=== PATIENT | male | born 1940 | race Caucasian/White ===

== ENCOUNTER 2023-11-28 16:03 | Observation (INO) ==
--- NOTE | 2023-11-28 16:13 | ED Triage Note ---
Date of Service November 28, 2023 Provider in Triage Author: Keila Aguila History of Present Illness This patient was briefly evaluated while in triage. An abbreviated physical exam was performed. This patient is a 83-year-old Male who presents to the ED for evaluation of hypotension. He states that at 4:30 am he woke up and had a funny feeling and trouble focusing. He then went to the bathroom and had a BM and went back to lay down. As soon as he laid down he felt like he had to go again and had a lot of diarrhea when he got up to go to the bathroom. He had a large amount of dark red blood mixed in with the diarrhea. He was then hypotensive throughout the day. Continued with rectal bleeding throughout the day. He is on chemo for subcutaneous T-cell lymphoma being treated in [place]. He was supposed to start chemo in [place] today, but too sick. He is on Plavix and aspirin. Has some discomfort in his abdomen. No nausea or vomiting. Has SOB with exertion. No chest pain. Allergies to Codeine and Iodine. Needs to be premedicated for IV contrast dye, but does well with premedication. Physical Exam GENERAL: Non-toxic and in no acute distress. HEENT: Pupils equal. No obvious scleral icterus. HEART: Regular rate and rhythm. LUNGS: Clear to auscultation. Diffuse wheezing. No accessory muscle use. ABDOMEN: Mild distension, diffusely tender to palpation. NEURO: Alert and oriented. No obvious neurological deficits on quick neuro exam. MUSCULOSKELETAL: No gross musculoskeletal defects. Initial orders for labs and / or imaging were placed and patient was placed in the waiting area until a bed is available. Please see further documentation for the full ED course. MDM / Impression Impression Impression: Weakness, Elevated lactic acid level, GI bleed, Elevated troponin Impression: GI bleed Qualifiers: GI bleed type/associated pathology: unspecified gastrointestinal hemorrhage type Qualified Code(s): K92.2 - Gastrointestinal hemorrhage, unspecified
[2023-11-28] MEDS: SODIUM CHLORIDE 0.9% 500 ML IV STA (16:49)
[2023-11-28 17:13] LABS: iSTAT Creatinine 1.1 mg/dl (0.6-1.3); iSTAT Hemoglobin 8.8 g/dl (14.0-18.0); iSTAT Ionized Calcium 1.08 mmol/l (1.12-1.32); iSTAT Potassium 4.1 mmol/L (3.3-5.0)
[2023-11-28 17:23] LABS: INR 0.9 (0.9-1.1); Partial Thromboplastin Ratio 0.7; Partial Thromboplastin Time 21 Seconds (21-31); Prothrombin Time 10.3 Seconds (9.0-12.0)
[2023-11-28 17:31] LABS: Basophils # (auto) 0.06 K/uL (0.00-0.20); Basophils % (auto) 0.5 %; Eosinophils # (auto) 0.02 K/uL (0.00-0.50); Eosinophils % (auto) 0.2 %; Hematocrit (blood only) 27.1 % (42.0-52.0); Hemoglobin 9.1 g/dl (14.0-18.0); Immature Granulocytes # (auto) 0.27 K/uL (0.01-0.20); Immature Granulocytes % (auto) 2.2 %; Lymphocytes # (auto) 1.43 K/uL (1.20-3.40); Lymphocytes % (auto) 11.5 %; Mean Corpuscular Hemoglobin 32.4 pg (25.0-34.0); Mean Corpuscular Hgb Conc 33.6 g/dL (32.0-36.0); Mean Corpuscular Volume 96.4 fL (80.0-100.0); Mean Platelet Volume 9.5 fL (9.4-12.4); Monocytes # (auto) 0.93 K/uL (0.11-0.59); Monocytes % (auto) 7.5 %; Neutrophils # (auto) 9.77 K/uL (1.40-6.50); Neutrophils % (auto) 78.1 %; Platelet Count 273 K/uL (130-400); RDW Coefficient of Variation 15.3 % (11.5-14.5); RDW Standard Deviation 53.1 fL (36.4-46.3); Red Blood Count 2.81 M/uL (4.70-6.10); White Blood Count 12.48 K/ul (4.8-10.8)
[2023-11-28] MEDS: diphenhydrAMINE 50 MG/ML VIAL IV ONE (17:48)
[2023-11-28] MEDS: SODIUM CHLORIDE 0.9% 1,000 ML IV ONE ×2 (17:49→19:17)
[2023-11-28] MEDS: ONDANSETRON INJ 2 MG/ML 2 ML VIAL IV STA (17:49)
[2023-11-28] MEDS: ALBUT/IPRATROP 3MG/0.5MG NEB 3 ML VIAL NEB STA (17:52)
--- NOTE | 2023-11-28 17:53 | XRay Report ---
XR chest 1V not portable HISTORY: 83 years-old Male GI bleed acute GI bleed with shortness of breath COMPARISON: None TECHNIQUE: PA view of the chest FINDINGS: Cardiac silhouette is enlarged. Median sternotomy with sternal surgical clips. Several sternotomy wir es are fractured. No pneumothorax, pleural effusion, airspace consolidation or pulmonary edema. The b ones appear grossly intact. IMPRESSION: Cardiomegaly without acute process. ACT 112: Negative or not required by law. The above report was generated using voice recognition software. It may contain grammatical, syntax o r spelling errors. Electronically signed by: Presley Hidalgo M.D. 11/28/2023 5:51 PM
[2023-11-28 18:05] LABS: Alanine Aminotransferase 19 U/L (7-52); Albumin Level 3.2 gm/dl (3.4-5.0); Alkaline Phosphatase 58 U/L (34-104); Anion Gap 8 (3-11); Aspartate Aminotransferase 23 U/L (13-39); BUN Creatinine Ratio 39.4 (10-20); Bilirubin,Total 0.3 mg/dl (0.2-1.0); Blood Urea Nitrogen 41 mg/dl (6-23); Calcium 8.4 mg/dl (8.6-10.3); Carbon Dioxide 27 mmol/L (21-32); Chloride 97 mmol/L (98-107); Est GFR (African American) 76.6 ml/min; Est GFR (Non-African American) 66.1 ml/min; Globulin 3.1 gm/dl (2.5-4.0); Glucose 111 mg/dl (70-99(Fasting)); Lipase 37 U/L (11-82); Magnesium 1.6 mg/dl (1.7-2.4); Potassium 4.2 mmol/L (3.5-5.1); Sodium 132 mmol/L (136-145); Total Protein 6.3 gm/dl (6.0-8.3)
[2023-11-28 18:09] LABS: Troponin I High Sensitivity 43.1 pg/ml (0-20)
[2023-11-28 18:18] LABS: Thyroid Stimulating Hormone 2.301 uIu/ml (0.300-4.500)
[2023-11-28] MEDS: OPTIRAY 320 100ml IV ONE (18:21)
--- NOTE | 2023-11-28 18:31 | Emergency Department Note ---
Impression & Plan Weakness, Elevated lactic acid level, GI bleed, Elevated troponin ED Provider Note NAME: JOHNNY PAZ AGE: 83 SEX: M : 1940 ARRIVES VIA: Walk-In INFORMANT: Patient ED PROVIDER(S): Mani Up DO CHIEF COMPLAINT: weakness, abdominal pain HPI: Patient is an 83-year-old male who presents to the ER patient with a history of cancer currently receiving chemotherapy with his last dose 2 weeks ago. He has been having diarrhea today, abdominal pain and feeling very weak/rundown. Denies any headache or change in vision. He admits to back pain which is chronic but worse than usual. Denies any dysuria, urgency, or frequency. No other exacerbating or remitting factors. Additional history obtained from daughter who is present at bedside who notes that the patient's blood pressure was 60s when he was up moving around. ADDITIONAL HISTORY OBTAINED: Per HPI Chronic Medical/Social Conditions Affecting Care: Per HPI PAST MEDICAL HISTORY:See Below PAST SURGICAL HISTORY:See Below FAMILY HISTORY:See Below SOCIAL HISTORY:See Below HOME MEDICATIONS:See Below ALLERGIES:See Below VITALS:See Below PHYSICAL EXAMINATION: GENERAL: Sitting up in bed, alert, chronically ill-appearing, disheveled EYE EXAM: normal conjunctiva. OROPHARYNX: mucous membranes are moist NECK: supple, no nuchal rigidity, no adenopathy, non-tender LUNGS: Clear to auscultation. Normal chest wall mechanics HEART: no murmurs, S1 normal and S2 normal ABDOMEN: abdomen soft, non-tender, normo-active bowel sounds, no masses, no rebound or guarding. BACK: Back is symmetrical on inspection and there is no deformity, no midline tenderness, no CVA tenderness. UPPER EXTREMITIES: upper extremities are grossly normal. LOWER EXTREMITIES: No pitting edema. NEURO EXAM: Normal sensorium, cranial nerves II-XII grossly intact, normal speech, no gross weakness of arms, no gross weakness of legs. MEDICAL DECISION MAKING: Patient is an 83-year-old male with a history of T-cell lymphoma who presents the ER for above-stated complaint. Last chemo was 2 weeks ago. IV was established blood was obtained. Labs show a leukocytosis of nearly 13 with anemia of 9. INR unremarkable. BMP with mild hyponatremia at 132. LFTs bilirubin was unremarkable. Troponin was elevated. Lipase was normal. Pro-Tobin was normal. Patient was given IV fluids. Monitor closely. Was given IV cefepime and blood cultures were obtained. CT abdomen pelvis showed no acute pathology. Patient was given morphine as well. Updated bedside and discussed the hospitalist for further evaluation management treatment. EKG was abnormal but no old to compare to. Currently having no chest pain. Consults/Care Managements Discussions: Per [facility] Triage Nursing notes reviewed. Limited review of prior medical records performed Vital Signs: reviewed and remarkable for HTN Differential diagnosis: Infection, dehydration, metabolic abnormality, hypo/hyperglycemia, electrolyte disturbance, anemia, hypoxia, cardiac sources, intracerebral event, toxicologic, neurologic, as well as other pathologies. ER treatment provided: See below Diagnostics interpreted by me include EKG and cardiac monitoring as listed below: -Cardiac Monitoring: An order was placed for continuous cardiac monitoring. The monitor shows a rate of 90 with sinus rhythm. -ECG: Sinus rhythm rate 80 Normal axis T wave inversions in the inferior leads as well as the lateral leads with ST depressions QTc 408 No old to compare to -Laboratory studies:Interpreted by me as stated above in MDM and shown below. Imaging studies: Xrays: As interpreted by me: Portable AP upright 1 view the chest shows no focal infiltrate CTs show: CT abdomen pelvis was unremarkable Procedures:none Critical Care: None Past Med/Surg History Social History Smoking Status: Current every day smoker Tobacco Type: Cigarettes Feels Safe at Home: Yes Allergies Allergies Allergy/AdvReac Type Severity Reaction Status Date / Time Iodinated Contrast Media Allergy Severe "SWELLED Verified 11/28/23 19:45 UP ALL OVER" iodine Allergy Severe "SWELLED Verified 11/28/23 19:45 UP ALL OVER" codeine AdvReac Intermediate CAUSED Verified 11/28/23 19:45 PROSTATE ISSUES Home Meds Home Medications Medication Instructions Recorded Confirmed clopidogrel 75 mg tablet 75 mg PO DAILY 11/28/23 11/28/23 folic acid 1 mg tablet 1 mg PO DAILY 11/28/23 11/28/23 lisinopril 20 1 tab PO DAILY 11/28/23 11/28/23 mg-hydrochlorothiazide 12.5 mg tablet lorazepam 0.5 mg tablet 0.5 mg PO BID PRN Anxiety 11/28/23 11/28/23 oxycodone-acetaminophen 5 mg-325 1 tab PO Q4H PRN Pain 11/28/23 11/28/23 mg tablet prednisone 20 mg tablet 20 mg PO DAILY 11/28/23 11/28/23 rosuvastatin 5 mg tablet 5 mg PO DAILY 11/28/23 11/28/23 zolpidem 10 mg tablet 10 mg PO HS PRN Sleep 11/28/23 11/28/23 Results & Data (ED) Vital Signs Vital Signs - 24 hr 11/28/23 16:12 11/28/23 17:57 11/28/23 18:17 Temperature 36.1 C L Temperature Source Temporal Artery Scan Pulse Rate 98 H 88 Pulse Rate [Apical] Respiratory Rate 18 Respiratory Effort / Characteristics Non-Labored Spontaneous Respiratory Depth Normal Respiratory Pattern Regular Blood Pressure 111/69 Blood Pressure [Right Arm] Blood Pressure Mean 83 Blood Pressure Mean [Right Arm] Pulse Oximetry 100 100 Oxygen Delivery Method Room Air Room Air Sepsis Recent Fever Within 48 Hours No Sepsis New/Unexplained Change in Mental Status N/A Sepsis Action Taken by Nursing No Action Required 11/28/23 18:17 11/28/23 18:17 11/28/23 21:37 Temperature Temperature Source Pulse Rate 114 H Pulse Rate [Apical] 88 Respiratory Rate 24 Respiratory Effort / Characteristics Respiratory Depth Respiratory Pattern Blood Pressure Blood Pressure [Right Arm] 153/74 H Blood Pressure Mean Blood Pressure Mean [Right Arm] 100 Pulse Oximetry 100 100 Oxygen Delivery Method Room Air Room Air Sepsis Recent Fever Within 48 Hours Sepsis New/Unexplained Change in Mental Status Sepsis Action Taken by Nursing 11/28/23 21:40 Temperature Temperature Source Pulse Rate Pulse Rate [Apical] 111 H Respiratory Rate 24 Respiratory Effort / Characteristics Respiratory Depth Respiratory Pattern Blood Pressure Blood Pressure [Right Arm] 125/89 Blood Pressure Mean Blood Pressure Mean [Right Arm] 101 Pulse Oximetry 97 Oxygen Delivery Method Room Air Sepsis Recent Fever Within 48 Hours Sepsis New/Unexplained Change in Mental Status Sepsis Action Taken by Nursing Laboratory Data 11/28/23 21:33 11/28/23 16:53 Lab Results 11/28/23 11/28/23 11/28/23 Range/Units 16:53 17:00 18:56 WBC 12.48 H (4.8-10.8) K/ul RBC 2.81 L (4.70-6.10) M/uL Hgb 9.1 L (14.0-18.0) g/dl POC Hgb 8.8 L (14.0-18.0) g/dl Hct 27.1 L (42.0-52.0) % POC Hct 26 L (42-52) % MCV 96.4 (80.0-100.0) fL MCH 32.4 (25.0-34.0) pg MCHC 33.6 (32.0-36.0) g/dL RDW Std Deviation 53.1 H (36.4-46.3) fL RDW Coeff of Luzmaria 15.3 H (11.5-14.5) % Plt Count 273 (130-400) K/uL MPV 9.5 (9.4-12.4) fL Immature Gran % (Auto) 2.2 % Neut % (Auto) 78.1 % Lymph % (Auto) 11.5 % [place] % (Auto) 7.5 % Eos % (Auto) 0.2 % Baso % (Auto) 0.5 % Neut # (Auto) 9.77 H (1.40-6.50) K/uL Lymph # (Auto) 1.43 (1.20-3.40) K/uL [place] # (Auto) 0.93 H (0.11-0.59) K/uL Eos # (Auto) 0.02 (0.00-0.50) K/uL Baso # (Auto) 0.06 (0.00-0.20) K/uL Immature Gran # (Auto) 0.27 H (0.01-0.20) K/uL PT 10.3 (9.0-12.0) Seconds INR 0.9 (0.9-1.1) APTT 21 (21-31) Seconds PTT Ratio 0.7 POC Sodium 131 L (135-144) mmol/L Sodium 132 L (136-145) mmol/L POC Potassium 4.1 (3.3-5.0) mmol/L Potassium 4.2 (3.5-5.1) mmol/L POC Chloride 96 L (101-112) mmol/L Chloride 97 L (98-107) mmol/L Carbon Dioxide 27 (21-32) mmol/L POC Total CO2 27 (24-31) mmol/L Anion Gap 8 (3-11) POC Anion Gap 13.0 L (16-25) mmol/L POC BUN 37 H (7-18) mg/dl BUN 41 H (6-23) mg/dl Creatinine 1.04 (0.6-1.4) mg/dl POC Creatinine 1.1 (0.6-1.3) mg/dl Est Cr Clr Drug Dosing Not Reportable Est GFR ( Amer) 76.6 ml/min Est GFR (Non-Af Amer) 66.1 ml/min BUN/Creatinine Ratio 39.4 H (10-20) Glucose 111 H (70-99(Fasting)) mg/dl POC Glucose (other) 101 H (70-99) mg/dl Lactate 2.7 H* 1.9 (0.4-2.0) mmol/L Calcium 8.4 L (8.6-10.3) mg/dl POC Ioniz Calcium Payal 1.08 L (1.12-1.32) mmol/l Magnesium 1.6 L (1.7-2.4) mg/dl Total Bilirubin 0.3 (0.2-1.0) mg/dl AST 23 (13-39) U/L ALT 19 (7-52) U/L Alkaline Phosphatase 58 (34-104) U/L Troponin I High Sens 43.1 H 38.3 H (0-20) pg/ml Total Protein 6.3 (6.0-8.3) gm/dl Albumin 3.2 L (3.4-5.0) gm/dl Globulin 3.1 (2.5-4.0) gm/dl Albumin/Globulin Ratio 1.0 (0.9-2) Lipase 37 (11-82) U/L Procalcitonin 0.26 (0-0.5) ng/ml TSH 2.301 (0.300-4.500) uIu/ml Blood Type A Positive Antibody Screen NEGATIVE 11/28/23 Range/Units 21:33 WBC 13.79 H (4.8-10.8) K/ul RBC 2.73 L (4.70-6.10) M/uL Hgb 8.8 L (14.0-18.0) g/dl POC Hgb (14.0-18.0) g/dl Hct 26.8 L (42.0-52.0) % POC Hct (42-52) % MCV 98.2 (80.0-100.0) fL MCH 32.2 (25.0-34.0) pg MCHC 32.8 (32.0-36.0) g/dL RDW Std Deviation 55.2 H (36.4-46.3) fL RDW Coeff of Luzmaria 15.3 H (11.5-14.5) % Plt Count 253 (130-400) K/uL MPV 9.6 (9.4-12.4) fL Immature Gran % (Auto) % Neut % (Auto) % Lymph % (Auto) % [place] % (Auto) % Eos % (Auto) % Baso % (Auto) % Neut # (Auto) (1.40-6.50) K/uL Lymph # (Auto) (1.20-3.40) K/uL [place] # (Auto) (0.11-0.59) K/uL Eos # (Auto) (0.00-0.50) K/uL Baso # (Auto) (0.00-0.20) K/uL Immature Gran # (Auto) (0.01-0.20) K/uL PT (9.0-12.0) Seconds INR (0.9-1.1) APTT (21-31) Seconds PTT Ratio POC Sodium (135-144) mmol/L Sodium (136-145) mmol/L POC Potassium (3.3-5.0) mmol/L Potassium (3.5-5.1) mmol/L POC Chloride (101-112) mmol/L Chloride (98-107) mmol/L Carbon Dioxide (21-32) mmol/L POC Total CO2 (24-31) mmol/L Anion Gap (3-11) POC Anion Gap (16-25) mmol/L POC BUN (7-18) mg/dl BUN (6-23) mg/dl Creatinine (0.6-1.4) mg/dl POC Creatinine (0.6-1.3) mg/dl Est Cr Clr Drug Dosing Est GFR ( Amer) ml/min Est GFR (Non-Af Amer) ml/min BUN/Creatinine Ratio (10-20) Glucose (70-99(Fasting)) mg/dl POC Glucose (other) (70-99) mg/dl Lactate (0.4-2.0) mmol/L Calcium (8.6-10.3) mg/dl POC Ioniz Calcium Payal (1.12-1.32) mmol/l Magnesium (1.7-2.4) mg/dl Total Bilirubin (0.2-1.0) mg/dl AST (13-39) U/L ALT (7-52) U/L Alkaline Phosphatase (34-104) U/L Troponin I High Sens (0-20) pg/ml Total Protein (6.0-8.3) gm/dl Albumin (3.4-5.0) gm/dl Globulin (2.5-4.0) gm/dl Albumin/Globulin Ratio (0.9-2) Lipase (11-82) U/L Procalcitonin (0-0.5) ng/ml TSH (0.300-4.500) uIu/ml Blood Type Antibody Screen Administered Medications Discontinued Medications Albuterol (Albut/Ipratrop 3mg/0.5mg Neb 3 Ml Vial) 3 ml NEB NOW STA; Protocol Stop: 11/28/23 16:22 Last Admin: 11/28/23 17:52 Dose: 3 ml Documented By: IDRIS Diphenhydramine HCl (Diphenhydramine 50 Mg/Ml Vial) 50 mg IV ONE ONE Stop: 11/28/23 16:19 Last Admin: 11/28/23 17:48 Dose: 50 mg Documented By: IDRIS Sodium Chloride (Nss) 500 mls @ 999 mls/hr IV .Q31M STA Stop: 11/28/23 16:48 Last Infusion: 11/28/23 17:30 Dose: Infused Documented By: Admin: 11/28/23 16:49 Dose: 999 mls/hr Documented By: REGINA Sodium Chloride (Nss) 1,000 mls @ 999 mls/hr IV .Q1H1M ONE Stop: 11/28/23 18:20 Last Infusion: 11/28/23 19:17 Dose: Infused Documented By: JOSE RAUL Admin: 11/28/23 17:49 Dose: 999 mls/hr Documented By: IDRIS Sodium Chloride (Nss) 1,000 mls @ 999 mls/hr IV .Q1H1M ONE Stop: 11/28/23 19:21 Last Infusion: 11/28/23 20:49 Dose: Infused Documented By: Admin: 11/28/23 19:17 Dose: 999 mls/hr Documented By: JOSE RAUL Cefepime HCl (Maxipime) 2,000 mg in 20 mls @ 5 mls/min IV NOW STA; Protocol Stop: 11/28/23 18:24 Last Admin: 11/28/23 18:54 Dose: 5 mls/min Documented By: IDRIS Ioversol (Optiray 320 100ml) 91 ml IV ONCE ONE Stop: 11/28/23 18:20 Last Admin: 11/28/23 18:21 Dose: 91 ml Documented By: DAVID Methylprednisolone (Methylprednisolone 40 Mg/Ml Vial) 40 mg IV NOW ONE Stop: 11/28/23 16:19 Last Admin: 11/28/23 17:47 Dose: 40 mg Documented By: IDRIS Morphine Sulfate (Morphine Sulfate 4 Mg/Ml 1 Ml Carp\\Vial) 4 mg IV NOW STA Stop: 11/28/23 18:58 Last Admin: 11/28/23 19:02 Dose: 4 mg Documented By: IDRIS Ondansetron HCl (Ondansetron Inj 2 Mg/Ml 2 Ml Vial) 4 mg IV NOW STA Stop: 11/28/23 16:19 Last Admin: 11/28/23 17:49 Dose: 4 mg Documented By: IDRIS Imaging Data Radiologist's Impression: Abdomen/Pelvis CT 11/28/23 16:19 Exam(s): CT ABDOMEN + PELVIS With Contrast IV Amt: 91 ml optiray 320 EXAM: CT Abdomen and Pelvis With Intravenous Contrast CLINICAL HISTORY: Reason for exam: Abdominal pain, rectal bleeding. TECHNIQUE: Axial computed tomography images of the abdomen and pelvis with intravenous contrast. CTDI is 26.93 mGy and DLP is 1213.6 mGy-cm. Automated exposure control was utilized for the study. A dose lowering technique was utilized adhering to the principles of ALARA. CONTRAST: Patient received 91 ml optiray 320 of IV contrast COMPARISON: No relevant prior studies available. FINDINGS: ABDOMEN: Liver: Unremarkable. Gallbladder and bile ducts: Cholecystectomy. Pancreas: Unremarkable. Spleen: Unremarkable. Adrenals: Unremarkable. Kidneys and ureters: Multiple cysts in the kidneys. Stomach and bowel: Colonic diverticulosis without diverticulitis. PELVIS: Appendix: No findings to suggest acute appendicitis. Bladder: The bladder is distended and markedly trabeculated. Reproductive: Prostate is normal in size. ABDOMEN and PELVIS: Intraperitoneal space: Unremarkable. No free air. No significant fluid collection. Bones/joints: Severe degenerative changes within the spine. Left hip arthroplasty which is positioned posteriorly with cystic changes around the acetabular component as can be seen in the setting of particle disease. Soft tissues: Unremarkable. 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 Lymph nodes: Unremarkable. IMPRESSION: 1. The bladder is distended and markedly trabeculated. 2. Colonic diverticulosis without diverticulitis. 3. Moderate to severe aortobiiliac atherosclerotic disease. 4. Severe degenerative changes within the spine. 5. Left hip arthroplasty which is positioned posteriorly with cystic changes around the acetabular component as can be seen in the setting of particle disease. Electronically signed by: Steven Kaplan MD 11/28/23 19:39 PM Chest X-Ray 11/28/23 16:19 XR chest 1V not portable HISTORY: 83 years-old Male GI bleed acute GI bleed with shortness of breath COMPARISON: None TECHNIQUE: PA view of the chest FINDINGS: Cardiac silhouette is enlarged. Median sternotomy with sternal surgical clips. Several sternotomy wires are fractured. No pneumothorax, pleural effusion, airspace consolidation or pulmonary edema. The bones appear grossly intact. IMPRESSION: Cardiomegaly without acute process. ACT 112: Negative or not required by law. The above report was generated using voice recognition software. It may contain grammatical, syntax or spelling errors. Electronically signed by: Presley Hidalgo M.D. 11/28/2023 5:51 PM Discharge Plan Visit Data Chief Complaint: Hypotension Stated Complaint: GI BLEED/BLOODY STOOL, LOW BP ED Provider: Mani Up Discharge Problem: Weakness, Elevated lactic acid level, GI bleed, Elevated troponin Forms Stand Alone Forms: My [facility] [employer] Prescriptions Prescriptions: No Action lisinopril-hydrochlorothiazide 20-12.5 mg tablet 1 tab PO DAILY prednisone 20 mg tablet 20 mg PO DAILY clopidogrel 75 mg tablet 75 mg PO DAILY oxycodone-acetaminophen 5-325 mg tablet 1 tab PO Q4H PRN (Reason: Pain) lorazepam 0.5 mg tablet 0.5 mg PO BID PRN (Reason: Anxiety) folic acid 1 mg tablet 1 mg PO DAILY zolpidem 10 mg tablet 10 mg PO HS PRN (Reason: Sleep) rosuvastatin 5 mg tablet 5 mg PO DAILY Referrals Referrals: PCP,NO [Physician] - Discharge Problem: GI bleed Qualifiers: GI bleed type/associated pathology: unspecified gastrointestinal hemorrhage type Qualified Code(s): K92.2 - Gastrointestinal hemorrhage, unspecified
[2023-11-28] MEDS: CEFEPIME 2,000 MG/20 ML VIAL IV STA (18:54)
[2023-11-28] MEDS: MoRPHine SULFATE 4 MG/ML 1 ML CARP\\VIAL IV STA (19:02)
--- NOTE | 2023-11-28 19:40 | CT Scan Report ---
Exam(s): CT ABDOMEN + PELVIS With Contrast IV Amt: 91 ml optiray 320 EXAM: CT Abdomen and Pelvis With Intravenous Contrast CLINICAL HISTORY: Reason for exam: Abdominal pain, rectal bleeding. TECHNIQUE: Axial computed tomography images of the abdomen and pelvis with intravenous contrast. CTDI is 26.93 mGy and DLP is 1213.6 mGy-cm. Automated exposure control was utilized for the study. A dose lowering technique was utilized adhering to the principles of ALARA. CONTRAST: Patient received 91 ml optiray 320 of IV contrast COMPARISON: No relevant prior studies available. FINDINGS: ABDOMEN: Liver: Unremarkable. Gallbladder and bile ducts: Cholecystectomy. Pancreas: Unremarkable. Spleen: Unremarkable. Adrenals: Unremarkable. Kidneys and ureters: Multiple cysts in the kidneys. Stomach and bowel: Colonic diverticulosis without diverticulitis. PELVIS: Appendix: No findings to suggest acute appendicitis. Bladder: The bladder is distended and markedly trabeculated. Reproductive: Prostate is normal in size. ABDOMEN and PELVIS: Intraperitoneal space: Unremarkable. No free air. No significant fluid collection. Bones/joints: Severe degenerative changes within the spine. Left hip arthroplasty which is positioned posteriorly with cystic changes around the acetabular component as can be seen in the setting of particle disease. Soft tissues: Unremarkable. 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 Lymph nodes: Unremarkable. IMPRESSION: 1. The bladder is distended and markedly trabeculated. 2. Colonic diverticulosis without diverticulitis. 3. Moderate to severe aortobiiliac atherosclerotic disease. 4. Severe degenerative changes within the spine. 5. Left hip arthroplasty which is positioned posteriorly with cystic changes around the acetabular component as can be seen in the setting of particle disease. Electronically signed by: Steven Kaplan MD 11/28/23 19:39 PM
--- NOTE | 2023-11-28 21:04 | History & Physical Report ---
Date of Service November 28, 2023 Assessment & Plan (1) GI bleed: Plan: - CT A&P without source of acute bleeding - Hemoglobin from 12 to 9 over the past 3 days - Type and screen completed and blood consent was obtained, place 2 large bore IVs - q6H CBC and transfuse if hemoglobin less than 7 - 40mg Protonix IV BID - GI consulted; NPO pending consult (2) Hypotension: Plan: - reportedly hypotensive at home in the setting of acute GI bleed - blood pressures 130s/70s after 3L IVF - Continue LR @100ml/hr - if he becomes hypotensive again low threshold to give stress dose steroids - continue to trend H/H as per above (3) Elevated lactic acid level: Plan: - Does meet SIRs criteria with leukocytosis of 12 and tachycardia - Lactate initially elevated at 2.7, down to 1.9 with IVF; likely dehydrated - Procal= 0.26, CXR without signs of acute infection - Pt without signs of neutropenia, still considered immunocompromised as he is on chemotherapy - Received cefepime in the ED, no signs of acute infection at present; but low threshold to resume broad spectrum coverage with cefepime, given that he is immunocompromised - urine and blood cultures pending (4) Elevated troponin: Plan: - troponin 43-> 38; EKG with T wave inversions II, II, aVF, and V5/6. No prior EKGs for comparison. 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 - follows with [facility], request for records - continue prednisone; low threshold for stress dose steroids if further hypotension (9) History of coronary artery bypass graft: Plan: - hold Plavix given concern for acute GI bleed (10) Hypomagnesemia: Plan: - Mg= 1.6; repleted - continue to trend (11) Tobacco abuse: Plan: - 60 pack years - denies history of COPD, not on any inhalers at home - nicotine patch ordered History of Present Illness Primary Care Provider: Craig Hunt MD 83 year old male with a past medical history of CAD (CABG at 39), tobacco use (60 pack years), HTN, HLD, BPH, currently in treatment for subcutaneous T-cell lymphoma presenting with concern for GI bleed. Early this morning had blood BM, dark red blood mixed with diarrhea, second bloody BM around 1300. Systolic blood pressures in the 60s/70s at home. Started chemo therapy once weekly, 1 month ago and was scheduled for 4th treatment this afternoon, did not go. Follows with [facility] oncology. Denies history of GI bleeding, has never had colon cancer screening. Is on Plavix, states that he has been on since is CABG in his 30s. Some lightheadedness. Denies chest pain, dyspnea, abdominal pain, fever/chills. Some nausea earlier which has since resolved, denies vomiting. No further BM/bleeding since 1300 this afternoon. States that he had labs at the beginning of the week through oncology, and hemoglobin was 12 at that time. ED Work-Up Significant for: Blood pressures 130s/70s, Hbg= 9.1, Mild Leucocytosis= 12, Lactate 2.7-> 1.9, Trop 43-> 38, procal= 1.26. Received 40mg Solu-Medrol, DuoNeb, Cefepime, 3L NSS. Allergies Allergy/AdvReac Type Severity Reaction Status Date / Time Iodinated Contrast Media Allergy Severe "SWELLED Verified 11/28/23 19:45 UP ALL OVER" iodine Allergy Severe "SWELLED Verified 11/28/23 19:45 UP ALL OVER" shellfish derived Allergy Verified 11/29/23 12:26 codeine AdvReac Intermediate CAUSED Verified 11/28/23 19:45 PROSTATE ISSUES Home Medications Medication Instructions Recorded Confirmed Type clopidogrel 75 mg tablet 75 mg PO DAILY 11/28/23 11/28/23 History folic acid 1 mg tablet 1 mg PO DAILY 11/28/23 11/28/23 History lisinopril 20 1 tab PO DAILY 11/28/23 11/28/23 History mg-hydrochlorothiazide 12.5 mg tablet lorazepam 0.5 mg tablet 0.5 mg PO BID PRN Anxiety 11/28/23 11/28/23 History oxycodone-acetaminophen 5 mg-325 1 tab PO Q4H PRN Pain 11/28/23 11/28/23 History mg tablet prednisone 20 mg tablet 20 mg PO DAILY 11/28/23 11/28/23 History rosuvastatin 5 mg tablet 5 mg PO DAILY 11/28/23 11/28/23 History zolpidem 10 mg tablet 10 mg PO HS PRN Sleep 11/28/23 11/28/23 History Past Med/Surg History Social History Smoking Status: Current every day smoker Tobacco Type: Cigarettes Hx Alcohol Use: No Hx Substance Use: No Preferred Language: Wallisian Communication Ability: Effective 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 Beliefs That Will Affect Care: None Current Living Situation Comment: Friend Other Information That Helps Us Care for You: No Feels Safe at Home: Yes Safety Concerns: Feels Safe At This Time Assistive Devices: Cane Review of Systems Review of Systems: As per above Physical Exam Physical Exam: Constitutional: well-appearing, no acute distress HEENT: NCAT, no conjunctival injection CV: regular rhythm, no murmur appreciated, extremities well-perfused, no LE edema Resp: CTABL, no wheezes/rales/rhonchi appreciated, no increased work of breathing GI: soft, nondistended, nontender, BS normoactive MSK: no gross deformities appreciated Skin: warm, dry, no rash appreciated Neuro: alert, oriented, no focal neurologic deficit appreciated Results & Data Results & Data Vital Signs (Past 12 Hours) Vital Signs Temp Pulse Pulse Resp BP BP Pulse Ox 11/28/23 18:17 100 11/28/23 18:17 88 24 153/74 H 100 11/28/23 18:17 100 11/28/23 17:57 88 11/28/23 16:12 36.1 C L 98 H 18 111/69 100 O2 Del Method 11/28/23 18:17 Room Air 11/28/23 18:17 Room Air 11/28/23 18:17 Room Air 11/28/23 17:57 11/28/23 16:12 Room Air Supervising Physician Co-Signing Physician Notes Patient seen and examined, chart reviewed, case discussed with Dr. Zacarias and I agree with the assessment and plan as above Resident Activity Tracking Resident Involvement: Resident Care Provided Care Provided: Adult Hospital Medicine
[2023-11-28 21:52] LABS: Hematocrit (blood only) 26.8 % (42.0-52.0); Hemoglobin 8.8 g/dl (14.0-18.0); Mean Corpuscular Hemoglobin 32.2 pg (25.0-34.0); Mean Corpuscular Hgb Conc 32.8 g/dL (32.0-36.0); Mean Corpuscular Volume 98.2 fL (80.0-100.0); Mean Platelet Volume 9.6 fL (9.4-12.4); Platelet Count 253 K/uL (130-400); RDW Coefficient of Variation 15.3 % (11.5-14.5); RDW Standard Deviation 55.2 fL (36.4-46.3); Red Blood Count 2.73 M/uL (4.70-6.10); White Blood Count 13.79 K/ul (4.8-10.8)
[2023-11-28] MEDS: PANTOprazole 40 MG in SYRINGE 0 ML IV SCH (22:13)
[2023-11-28] MEDS: LACTATED RINGER'S 1,000 ML IV SCH (22:14)
[2023-11-28] MEDS: MAGNESIUM SULFATE / D5W 1 GM/100 ML BAG IV ONE (22:14)
[2023-11-28] MEDS: ZOLPIDEM TARTRATE 10 MG TAB PO PRN (23:56)
[2023-11-29 04:09] LABS: Hematocrit (blood only) 23.7 % (42.0-52.0); Hemoglobin 7.7 g/dl (14.0-18.0); Mean Corpuscular Hgb Conc 32.5 g/dL (32.0-36.0); Mean Corpuscular Volume 98.3 fL (80.0-100.0); Mean Platelet Volume 9.3 fL (9.4-12.4); Platelet Count 214 K/uL (130-400); RDW Coefficient of Variation 15.4 % (11.5-14.5); Red Blood Count 2.41 M/uL (4.70-6.10); White Blood Count 9.43 K/ul (4.8-10.8)
[2023-11-29 04:31] LABS: Albumin Globulin Ratio 1.2 (0.9-2); Albumin Level 2.9 gm/dl (3.4-5.0); Bilirubin,Total 0.3 mg/dl (0.2-1.0); Calcium 7.6 mg/dl (8.6-10.3); Creatinine Clr Calc Pharmacy 64.3 ml/min; Est GFR (African American) 91.6 ml/min; Est GFR (Non-African American) 79.1 ml/min; Globulin 2.5 gm/dl (2.5-4.0); Magnesium 1.7 mg/dl (1.7-2.4); Potassium 4.6 mmol/L (3.5-5.1); Total Protein 5.4 gm/dl (6.0-8.3)
[2023-11-29] MEDS ORDERED: oxyCODONE/ACETAMINOPHEN 5mg/325mg TAB PO PRN (08:17)
[2023-11-29] MEDS: oxyCODONE/ACETAMINOPHEN 5mg/325mg TAB PO ONE (08:23)
[2023-11-29] MEDS: predniSONE 20 MG TAB PO SCH (08:24)
[2023-11-29] MEDS: NICOTINE 14 MG/24 HR PATCH TD SCH (08:24)
[2023-11-29] MEDS: FOLIC ACID 1 MG TAB PO SCH (08:24)
[2023-11-29] MEDS: ROSUVASTATIN CALCIUM 5 MG TAB PO SCH (08:24)
[2023-11-29 09:04] LABS: Hematocrit (blood only) 22.8 % (42.0-52.0); Hemoglobin 7.4 g/dl (14.0-18.0); Mean Corpuscular Hgb Conc 32.5 g/dL (32.0-36.0); Mean Corpuscular Volume 98.7 fL (80.0-100.0); Mean Platelet Volume 9.6 fL (9.4-12.4); Platelet Count 212 K/uL (130-400); RDW Coefficient of Variation 15.7 % (11.5-14.5); RDW Standard Deviation 55.2 fL (36.4-46.3); Red Blood Count 2.31 M/uL (4.70-6.10); White Blood Count 9.03 K/ul (4.8-10.8)
--- NOTE | 2023-11-29 14:04 | Gastrointestinal Consultation ---
Date of Consultation November 29, 2023 Assessment & Plan (1) GI bleed: Pleasant man who has had three, maybe four bloody bowel movements yesterday but none since yesterday. This occurred without pain. In someone with vascular issues like he has you would worry about ischemia but that usually comes along w ith pain. He could have had a diverticular hemorrhage or perhaps and infectious enteritis causing his bleeding. At any rate he has not bled in 24 hours so most likely this has stopped. He has not had a colonoscopy so I do think he needs one. He is on plavix so colonoscopy will need to wait until Sunday. He is doing well so if he decides to go home his daughter or family member works for [employer] and she will arrange outpatient procedure. If he rebleeds or decides to stay colonoscopy can be done sunday. History of Present Illness Reason for Consultation: rectal bleeding Attending Physician: Mani Evans, DO History of Present Illness 83 year old man who woke the night before last with the urge to have a bowel movement. He did and said it was soft and he didn't look at it. Shortly after that he went back to the bathroom and had a "blow out". This one he said was bloody and family member who saw it said it was large and bloody diarrhea. He had two more bloody bowel movements after that but none since. He had no pain at all with this. He denies nausea or vomiting. He had no fever or chills. He did eat "takeout togolese food" the night before. He takes plavix for vascular issues and has had stents placed. He has a lot of vascular problems. He has never had a colonoscopy before. Allergies Allergy/AdvReac Type Severity Reaction Status Date / Time Iodinated Contrast Media Allergy Severe "SWELLED Verified 11/28/23 19:45 UP ALL OVER" iodine Allergy Severe "SWELLED Verified 11/28/23 19:45 UP ALL OVER" shellfish derived Allergy Verified 11/29/23 12:26 codeine AdvReac Intermediate CAUSED Verified 11/28/23 19:45 PROSTATE ISSUES Home Medications Medication Instructions Recorded Confirmed Type clopidogrel 75 mg tablet 75 mg PO DAILY 11/28/23 11/28/23 History folic acid 1 mg tablet 1 mg PO DAILY 11/28/23 11/28/23 History lisinopril 20 1 tab PO DAILY 11/28/23 11/28/23 History mg-hydrochlorothiazide 12.5 mg tablet lorazepam 0.5 mg tablet 0.5 mg PO BID PRN Anxiety 11/28/23 11/28/23 History oxycodone-acetaminophen 5 mg-325 1 tab PO Q4H PRN Pain 11/28/23 11/28/23 History mg tablet prednisone 20 mg tablet 20 mg PO DAILY 11/28/23 11/28/23 History rosuvastatin 5 mg tablet 5 mg PO DAILY 11/28/23 11/28/23 History zolpidem 10 mg tablet 10 mg PO HS PRN Sleep 11/28/23 11/28/23 History Patient History Social History Smoking Status: Current every day smoker Tobacco Type: Cigarettes Hx Alcohol Use: No Hx Substance Use: No Preferred Language: Vincentian Communication Ability: Effective 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 Beliefs That Will Affect Care: None Current Living Situation Comment: Friend Other Information That Helps Us Care for You: No Feels Safe at Home: Yes Safety Concerns: Feels Safe At This Time Assistive Devices: Cane Review of Systems Review of Systems: All systems reviewed & are unremarkable except as noted in HPI & below Physical Exam Constitutional: WD/WN, vitals as above Neck: trachea midline, no thyromegaly Respiratory: normal respiratory effort, lungs clear to auscultation Cardiovascular: RRR, no murmur, no edema Gastrointestinal (Abdomen): normal bowel sounds, soft, nontender, no hepatosplenomegaly Musculoskeletal: Extremities: extremities normal to inspection Results & Data Vital Signs (Past 12 Hours) Vital Signs Temp Pulse Pulse Resp BP BP Pulse Ox 11/29/23 12:25 73 18 134/73 98 11/29/23 09:47 55 L 22 90/53 L 98 11/29/23 07:29 64 11/29/23 07:17 36.5 C 65 18 127/47 L 98 11/29/23 06:00 67 17 137/74 11/29/23 05:30 63 19 120/65 11/29/23 05:00 74 12 109/62 97 11/29/23 04:00 64 18 105/66 97 11/29/23 03:31 79 23 112/51 L 98 11/29/23 03:00 80 23 127/71 97 11/29/23 02:31 86 21 96/62 L 92 11/29/23 02:00 93 H 19 100/65 83 L O2 Del Method 11/29/23 12:25 Room Air 11/29/23 09:47 Room Air 11/29/23 07:29 11/29/23 07:17 Room Air 11/29/23 06:00 11/29/23 05:30 11/29/23 05:00 11/29/23 04:00 11/29/23 03:31 11/29/23 03:00 11/29/23 02:31 11/29/23 02:00 Laboratory Results 11/29/23 11/29/23 11/28/23 Range/Units 08:46 03:47 21:33 WBC 9.03 9.43 13.79 H (4.8-10.8) K/ul RBC 2.31 L 2.41 L 2.73 L (4.70-6.10) M/uL Hgb 7.4 L 7.7 L 8.8 L (14.0-18.0) g/dl POC Hgb (14.0-18.0) g/dl Hct 22.8 L 23.7 L 26.8 L (42.0-52.0) % POC Hct (42-52) % MCV 98.7 98.3 98.2 (80.0-100.0) fL MCH 32.0 32.0 32.2 (25.0-34.0) pg MCHC 32.5 32.5 32.8 (32.0-36.0) g/dL RDW Std Deviation 55.2 H 55.0 H 55.2 H (36.4-46.3) fL RDW Coeff of Luzmaria 15.7 H 15.4 H 15.3 H (11.5-14.5) % Plt Count 212 214 253 (130-400) K/uL MPV 9.6 9.3 L 9.6 (9.4-12.4) fL Immature Gran % (Auto) % Neut % (Auto) % Lymph % (Auto) % Crosby % (Auto) % Eos % (Auto) % Baso % (Auto) % Neut # (Auto) (1.40-6.50) K/uL Lymph # (Auto) (1.20-3.40) K/uL Crosby # (Auto) (0.11-0.59) K/uL Eos # (Auto) (0.00-0.50) K/uL Baso # (Auto) (0.00-0.20) K/uL Immature Gran # (Auto) (0.01-0.20) K/uL PT (9.0-12.0) Seconds INR (0.9-1.1) APTT (21-31) Seconds PTT Ratio POC Sodium (135-144) mmol/L Sodium 132 L (136-145) mmol/L POC Potassium (3.3-5.0) mmol/L Potassium 4.6 (3.5-5.1) mmol/L POC Chloride (101-112) mmol/L Chloride 103 (98-107) mmol/L Carbon Dioxide 24 (21-32) mmol/L POC Total CO2 (24-31) mmol/L Anion Gap 5 (3-11) POC Anion Gap (16-25) mmol/L POC BUN (7-18) mg/dl BUN 32 H (6-23) mg/dl Creatinine 0.89 (0.6-1.4) mg/dl POC Creatinine (0.6-1.3) mg/dl Est Cr Clr Drug Dosing 64.3 Est GFR ( Amer) 91.6 ml/min Est GFR (Non-Af Amer) 79.1 ml/min BUN/Creatinine Ratio 36.0 H (10-20) Glucose 133 H (70-99(Fasting)) mg/dl POC Glucose (other) (70-99) mg/dl Lactate (0.4-2.0) mmol/L Calcium 7.6 L (8.6-10.3) mg/dl POC Ioniz Calcium Payal (1.12-1.32) mmol/l Magnesium 1.7 (1.7-2.4) mg/dl Total Bilirubin 0.3 (0.2-1.0) mg/dl AST 19 (13-39) U/L ALT 16 (7-52) U/L Alkaline Phosphatase 50 (34-104) U/L Troponin I High Sens (0-20) pg/ml Total Protein 5.4 L (6.0-8.3) gm/dl Albumin 2.9 L (3.4-5.0) gm/dl Globulin 2.5 (2.5-4.0) gm/dl Albumin/Globulin Ratio 1.2 (0.9-2) Lipase (11-82) U/L Procalcitonin (0-0.5) ng/ml TSH (0.300-4.500) uIu/ml Blood Type Antibody Screen 11/28/23 11/28/23 11/28/23 Range/Units 18:56 17:00 16:53 WBC 12.48 H (4.8-10.8) K/ul RBC 2.81 L (4.70-6.10) M/uL Hgb 9.1 L (14.0-18.0) g/dl POC Hgb 8.8 L (14.0-18.0) g/dl Hct 27.1 L (42.0-52.0) % POC Hct 26 L (42-52) % MCV 96.4 (80.0-100.0) fL MCH 32.4 (25.0-34.0) pg MCHC 33.6 (32.0-36.0) g/dL RDW Std Deviation 53.1 H (36.4-46.3) fL RDW Coeff of Luzmaria 15.3 H (11.5-14.5) % Plt Count 273 (130-400) K/uL MPV 9.5 (9.4-12.4) fL Immature Gran % (Auto) 2.2 % Neut % (Auto) 78.1 % Lymph % (Auto) 11.5 % Crosby % (Auto) 7.5 % Eos % (Auto) 0.2 % Baso % (Auto) 0.5 % Neut # (Auto) 9.77 H (1.40-6.50) K/uL Lymph # (Auto) 1.43 (1.20-3.40) K/uL Crosby # (Auto) 0.93 H (0.11-0.59) K/uL Eos # (Auto) 0.02 (0.00-0.50) K/uL Baso # (Auto) 0.06 (0.00-0.20) K/uL Immature Gran # (Auto) 0.27 H (0.01-0.20) K/uL PT 10.3 (9.0-12.0) Seconds INR 0.9 (0.9-1.1) APTT 21 (21-31) Seconds PTT Ratio 0.7 POC Sodium 131 L (135-144) mmol/L Sodium 132 L (136-145) mmol/L POC Potassium 4.1 (3.3-5.0) mmol/L Potassium 4.2 (3.5-5.1) mmol/L POC Chloride 96 L (101-112) mmol/L Chloride 97 L (98-107) mmol/L Carbon Dioxide 27 (21-32) mmol/L POC Total CO2 27 (24-31) mmol/L Anion Gap 8 (3-11) POC Anion Gap 13.0 L (16-25) mmol/L POC BUN 37 H (7-18) mg/dl BUN 41 H (6-23) mg/dl Creatinine 1.04 (0.6-1.4) mg/dl POC Creatinine 1.1 (0.6-1.3) mg/dl Est Cr Clr Drug Dosing Not Reportable Est GFR ( Amer) 76.6 ml/min Est GFR (Non-Af Amer) 66.1 ml/min BUN/Creatinine Ratio 39.4 H (10-20) Glucose 111 H (70-99(Fasting)) mg/dl POC Glucose (other) 101 H (70-99) mg/dl Lactate 1.9 2.7 H* (0.4-2.0) mmol/L Calcium 8.4 L (8.6-10.3) mg/dl POC Ioniz Calcium Payal 1.08 L (1.12-1.32) mmol/l Magnesium 1.6 L (1.7-2.4) mg/dl Total Bilirubin 0.3 (0.2-1.0) mg/dl AST 23 (13-39) U/L ALT 19 (7-52) U/L Alkaline Phosphatase 58 (34-104) U/L Troponin I High Sens 38.3 H 43.1 H (0-20) pg/ml Total Protein 6.3 (6.0-8.3) gm/dl Albumin 3.2 L (3.4-5.0) gm/dl Globulin 3.1 (2.5-4.0) gm/dl Albumin/Globulin Ratio 1.0 (0.9-2) Lipase 37 (11-82) U/L Procalcitonin 0.26 (0-0.5) ng/ml TSH 2.301 (0.300-4.500) uIu/ml Blood Type A Positive Antibody Screen NEGATIVE Diagnostic Findings Abdomen/Pelvis CT 11/28/23 16:19 Exam(s): CT ABDOMEN + PELVIS With Contrast IV Amt: 91 ml optiray 320 EXAM: CT Abdomen and Pelvis With Intravenous Contrast CLINICAL HISTORY: Reason for exam: Abdominal pain, rectal bleeding. TECHNIQUE: Axial computed tomography images of the abdomen and pelvis with intravenous contrast. CTDI is 26.93 mGy and DLP is 1213.6 mGy-cm. Automated exposure control was utilized for the study. A dose lowering technique was utilized adhering to the principles of ALARA. CONTRAST: Patient received 91 ml optiray 320 of IV contrast COMPARISON: No relevant prior studies available. FINDINGS: ABDOMEN: Liver: Unremarkable. Gallbladder and bile ducts: Cholecystectomy. Pancreas: Unremarkable. Spleen: Unremarkable. Adrenals: Unremarkable. Kidneys and ureters: Multiple cysts in the kidneys. Stomach and bowel: Colonic diverticulosis without diverticulitis. PELVIS: Appendix: No findings to suggest acute appendicitis. Bladder: The bladder is distended and markedly trabeculated. Reproductive: Prostate is normal in size. ABDOMEN and PELVIS: Intraperitoneal space: Unremarkable. No free air. No significant fluid collection. Bones/joints: Severe degenerative changes within the spine. Left hip arthroplasty which is positioned posteriorly with cystic changes around the acetabular component as can be seen in the setting of particle disease. Soft tissues: Unremarkable. 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 Lymph nodes: Unremarkable. IMPRESSION: 1. The bladder is distended and markedly trabeculated. 2. Colonic diverticulosis without diverticulitis. 3. Moderate to severe aortobiiliac atherosclerotic disease. 4. Severe degenerative changes within the spine. 5. Left hip arthroplasty which is positioned posteriorly with cystic changes around the acetabular component as can be seen in the setting of particle disease. Electronically signed by: Steven Kaplan MD 11/28/23 19:39 PM Chest X-Ray 11/28/23 16:19 XR chest 1V not portable HISTORY: 83 years-old Male GI bleed acute GI bleed with shortness of breath COMPARISON: None TECHNIQUE: PA view of the chest FINDINGS: Cardiac silhouette is enlarged. Median sternotomy with sternal surgical clips. Several sternotomy wires are fractured. No pneumothorax, pleural effusion, airspace consolidation or pulmonary edema. The bones appear grossly intact. IMPRESSION: Cardiomegaly without acute process. ACT 112: Negative or not required by law. The above report was generated using voice recognition software. It may contain grammatical, syntax or spelling errors. Electronically signed by: Presley Hidalgo M.D. 11/28/2023 5:51 PM (1) GI bleed GI bleed type/associated pathology: unspecified gastrointestinal hemorrhage type Qualified Code(s): K92.2 - Gastrointestinal hemorrhage, unspecified
--- NOTE | 2023-11-29 15:26 | Discharge Summary ---
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 Early this morning had blood BM, dark red blood mixed with diarrhea, second bloody BM around 1300. Systolic blood pressures in the 60s/70s at home. Started chemo therapy once weekly, 1 month ago and was scheduled for 4th treatment this afternoon, did not go. Follows with [facility] oncology. Denies history of GI bleeding, has never had colon cancer screening. Is on Plavix, states that he has been on since is CABG in his 30s. Some lightheadedness. Denies chest pain, dyspnea, abdominal pain, fever/chills. Some nausea earlier which has since resolved, denies vomiting. No further BM/bleeding since 1300 this afternoon. States that he had labs at the beginning of the week through oncology, and hemoglobin was 12 at that time. ED Work-Up Significant for: Blood pressures 130s/70s, Hbg= 9.1, Mild Leucocytosis= 12, Lactate 2.7-> 1.9, Trop 43-> 38, procal= 1.26. Received 40mg Solu-Medrol, DuoNeb, Cefepime, 3L NSS. Admission Exam Per Admitting Provider Constitutional: well-appearing, no acute distress HEENT: NCAT, no conjunctival injection CV: regular rhythm, no murmur appreciated, extremities well-perfused, no LE edema Resp: CTABL, no wheezes/rales/rhonchi appreciated, no increased work of breathing GI: soft, nondistended, nontender, BS normoactive MSK: no gross deformities appreciated Skin: warm, dry, no rash appreciated Neuro: alert, oriented, no focal neurologic deficit appreciated Principal Diagnosis GI bleed Discharge Exam Constitutional WD/WN, vitals as above Neck trachea midline, no thyromegaly Respiratory normal respiratory effort, lungs clear to auscultation Cardiovascular RRR, no murmur, no edema Gastrointestinal (Abdomen) normal bowel sounds, soft, nontender, no hepatosplenomegaly Skin no rashes, warm and dry Psychiatric A+Ox3, euthymic affect Discharge Data Allergies Allergy/AdvReac Type Severity Reaction Status Date / Time Iodinated Contrast Media Allergy Severe "SWELLED Verified 11/28/23 19:45 UP ALL OVER" iodine Allergy Severe "SWELLED Verified 11/28/23 19:45 UP ALL OVER" shellfish derived Allergy Verified 11/29/23 12:26 codeine AdvReac Intermediate CAUSED Verified 11/28/23 19:45 PROSTATE ISSUES Consultations 11/28/23 19:48 ED Decision to Admit Stat 11/28/23 21:33 Consult Gastroenterology Routine Ordered Studies 11/28/23 16:19 CT abd pelvis IV con only Stat Hospital Course (1) GI bleed: (2) Hypotension: (3) Elevated lactic acid level: (4) Elevated troponin: (5) HTN (hypertension): (6) HLD (hyperlipidemia): (7) Insomnia: (8) T-cell lymphoma: (9) History of coronary artery bypass graft: (10) Hypomagnesemia: (11) Tobacco abuse: Plan 83 year old male with a past medical history of CAD (CABG at 39), tobacco use (60 pack years), HTN, HLD, BPH, currently in treatment for subcutaneous T-cell l ymphoma presenting with concern for GI bleed. GI Bleed: Hemoglobin 9 on admission, decreased to 7.4 but stable on serial labs CTAP without definitive source of bleeding Recommend outpatient follow up with GI for colonoscopy within next 1-2 weeks Repeat labs week after discharge to ensure hemoglobin stable Hold Plavix temporarily, consider restarting in 1-2 weeks if no further sx Recommend bowel regimen ie. Miralax + adequate hydration to prevent constipation Hypotension - resolved: Patient transiently hypotensive on arrival, corrected with IV fluids Total Time Total Time Spent Total Time Spent (In Minutes): <30 Discharge Plan Discharge Items Patient Disposition: Home - Self-Care Reason For Visit: GI BLEED Discharge Diagnosis: GI bleed Activity: Resume your previous activity Non-emergency contact: Primary Care Provider Call non-emergency contact if: your symptoms worsen Follow-up/Referrals: Craig Hunt MD [Primary Care Provider] - Diet: Heart Healthy Addtl Attending Provider Instructions: You were admitted to the hospital for a GI bleed. It is possible that this was related to constipation/hemorrhoidal bleeding but we cannot say definitively. For this reason, please follow up with [facility] as we recommend getting a colonoscopy within 1-2 weeks. Discharge Recommendations: - Your hemoglobin was on the lower side but stable at the time of discharge. At present, you do not require a blood transfusion. However, if you have any further bleeding please return to the ED as you may need a blood transfusion. - Please follow up with your PCP soon after discharge. We recommend checking labs within the next week to make sure your hemoglobin is stable. Your PCP can also help determine when to restart your Plavix - Given your stated history of constipation, we recommend that you begin taking a routine stool softener, such as Miralax. Start with 3 capfuls dissolved in liquid per day and adjust as needed until you have regular, soft bowel movements. A discharge summary will be sent to your primary care physician to ensure continuity of care. Please bring this discharge summary with you to your next office appointment so that your provider can review it at that time. Medications: Your medication list has been reviewed and reconciled upon discharge to ensure accuracy and continuity of care. An updated list of all your medications is included with your hospital discharge paperwork. Please review this list closely and make note of any changes to your medications. Please DO NOT take your Plavix until you discuss with your PCP or bill hiker. No other changes were made to your home medications. Follow up appointments: - Make a follow up appointment with your PCP within the next week. It is very important that you follow up with them shortly after discharge from the hospital. - Keep all of your follow up appointments as already scheduled. If you cannot make an appointment, notify your provider. CONTACT YOUR PRIMARY CARE PROVIDER if you experience any of the following: - Difficulty following your treatment plan - Difficulty taking any of your medications CALL 911 OR GO TO THE EMERGENCY DEPARTMENT if you experience any of the following: - Sudden, severe abdominal pain or nausea/vomiting - Severe chest pain or chest pain that radiates to your jaw or arm - Sudden, severe shortness of breath or difficulty breathing Pending Studies at Discharge: No Stand-Alone Forms: My [employer], Smoking Cessation Medications and DC Order Prescriptions: Continued lisinopril-hydrochlorothiazide 20-12.5 mg tablet 1 tab PO DAILY prednisone 20 mg tablet 20 mg PO DAILY oxycodone-acetaminophen 5-325 mg tablet 1 tab PO Q4H PRN (Reason: Pain) lorazepam 0.5 mg tablet 0.5 mg PO BID PRN (Reason: Anxiety) folic acid 1 mg tablet 1 mg PO DAILY zolpidem 10 mg tablet 10 mg PO HS PRN (Reason: Sleep) rosuvastatin 5 mg tablet 5 mg PO DAILY Held clopidogrel 75 mg tablet 75 mg PO DAILY Hold Instructions: Resume on 12/13/23. Please hold until you see your PCP or GI doctor Discharge Orders: Discharge Order (Routine); Ordered 11/29/23 Ordered By: Jeferson Soliman Admission Data Admit Date/Time: 11/28/23 20:52 Attending Provider: Mani Evans Admit Provider: Ann-Marie Zacarias Primary Care Provider: Craig Hunt Other Providers: Louann Navarrete; Hanh Ozuna Jr Other Interventions: Discharge Summary Assessment (RN) Last Done: 11/29/23 16:25 Supervising Physician Co-Signing Physician Notes I personally examined the patient and verified all velázquez points of history and exam, discussed case, and agree with decision making with Dr Soliman Feeling better. No bloody bowel movement since about 1 PM yesterday. Belly feels okay. Would very much like to go home. Does not feel weak or lightheaded. Notes that the day before the bleeding started he had been very constipated and had a very large very hard bowel movement Vitals noted, in general he is awake and alert pleasant no distress. HEENT normocephalic atraumatic mucous membranes moist. Breathing unlabored no accessory muscle use good effort. Skin shows no rashes no pallor or icterus. Abdomen soft nondistended nontender no masses organomegaly. neuro without focal deficits.. GI bleeding with acute blood loss anemiafortunately bleeding appears to have stopped, fortunately also no hemorrhagic shock ensued. Stable for home. Outpatient colonoscopyhis bleeding fits the most with a diverticular bleed, although given his history of very severe constipation that had improved with a very large, very firm bowel movement the day beforehemorrhoidal bleeding certainly also looms large. Hold off on Plavix until he is clearly stablewe discussed his vascular history, and while he has coronary disease and peripheral vascular diseaseboth have been extremely stable for years. Discussed that the timeline for holding his Plavix is little bit "open ended" and if he has no more bleeding and his blood counts are rebounding nicelyhis PCP could advise him to resume his Plavix as soon as next week, but it may be a little bit longer. Outpatient colonoscopy to set uphis daughter works at the gastroenterology clinic closest where he lives. Discussed MiraLAX to stay ahead of what sounds to be chronic constipation. Discussed adequate hydration and nutrition. Safe/stable for home. Otherwise as above Resident Activity Tracking Resident Involvement: Resident Care Provided Care Provided: Adult [facility]
--- NOTE | 2023-11-29 17:14 | Billing Data ---
Date of Service November 29, 2023 Coding Level of Care Code 24408 IN/OBS DISCH 30 MIN/LESS
--- NOTE | 2023-12-01 06:17 | Electrocardiogram Report ---
Test Reason : Blood Pressure : / mmHG Vent. Rate : 080 BPM Atrial Rate : 080 BPM P-R Int : 184 ms QRS Dur : 092 ms QT Int : 354 ms P-R-T Axes : 000 068 225 degrees QTc Int : 408 ms Sinus rhythm with Premature atrial complexes Lateral infarct , age undetermined Abnormal ECG No previous ECGs available Confirmed by Hamzah Sebastian ([id number]) on 12/01/2023 6:16:56 AM Referred By: Confirmed By:Hamzah Sebastian
== END 2023-11-29 16:26 | disposition home or self-care (01) ==
LOC: ED 16:03 → INTOOBSV 20:52 → SUATTDRO 20:52 → EDINP 20:52